=== PATIENT | male | born 1975 | race Caucasian/White ===

== ENCOUNTER → 2019-08-31 15:44 | Outpatient (BNVA) | payer BC, SELFPAY | PROVIDERS: Family Provider Nurse Practitioner; PCP Nurse Practitioner; Visit Provider Nurse Practitioner Family | DX: J02.9 Acute pharyngitis, unspecified (principal); B37.0 Candidal stomatitis; R73.9 Hyperglycemia, unspecified; J18.9 Pneumonia, unspecified organism | CPT/HCPCS: 36415; 83036; 87070 ==

== ENCOUNTER → 2019-09-20 15:05 | Outpatient (BNVA) | payer BC, SELFPAY | PROVIDERS: Family Provider Nurse Practitioner; PCP Nurse Practitioner; Visit Provider Nurse Practitioner | DX: J45.909 Unspecified asthma, uncomplicated (principal); R05 Cough | CPT/HCPCS: 71046 ==

== ENCOUNTER → 2019-10-05 13:20 | Outpatient (BNVA) | payer BC, SELFPAY | PROVIDERS: Family Provider Nurse Practitioner; PCP Nurse Practitioner; Visit Provider Otolaryngology | DX: R22.1 Localized swelling, mass and lump, neck (principal); R47.02 Dysphasia; R13.10 Dysphagia, unspecified; J34.2 Deviated nasal septum | CPT/HCPCS: 99203; 99214 ==

== ENCOUNTER 2019-10-23 14:50 | Outpatient (CLI) | payer BC, SELFPAY ==
--- NOTE | 2019-10-23 15:00 | CT_ITS ---
WS: [id number] CT NECK WITH CONTRAST HISTORY: neck mass TECHNIQUE: Contiguous 5 mm axial images are performed through the neck with intravenous contrast. Sag ittal and coronal reformats are also submitted. All CT scans at [facility] use at least o ne of these dose optimization techniques: automated exposure control; mA and/or kV adjustment per pat ient size (includes targeted exams where dose is matched to clinical indication); or iterative recons truction. CONTRAST: CONTRAST: Omnipaque 300; 95 mL IV. DLP: 2748.27 mGycm COMPARISON: None available. There is very mild prominence of the palatine tonsils, LEFT greater than RIGHT. There is also mild as ymmetry of the LEFT pyriform sinus. No mass or abscess identified. The remaining larynx is negative. Torus tubarius and fossa of Rosenmuller and parapharyngeal fat are normal. No significant lymphadenopathy is identified. Thyroid gland and salivary glands are normally enhancing with no masses. Mild straightening of the normal cervical lordosis. Mild degenerative changes at C5-6 and C6-7. Visualized portions of the skull base demonstrate no abnormalities. Orbits and globes are within norm al limits. No soft tissue masses. Visualized paranasal sinuses and mastoid air cells are normal. Lung apices are clear. CT/CT neck w con* [id number] IMPRESSION: 1. Very minimal asymmetry enlargement of the palatine tonsils and LEFT pyrifor m sinus. No mass identified. Revisualization may be necessary for further evalu ation. 2. No significant adenopathy.
[2019-10-23] MEDS: iohexol 300 mg/mL 100 mL Btl IV (15:08)
== END 2019-10-23 14:51 | disposition home or self-care (01) ==
LOC: RADWPI 14:56
PROVIDERS: Family Provider Nurse Practitioner; PCP Nurse Practitioner; Visit Provider Otolaryngology
DX: R22.1 Localized swelling, mass and lump, neck (principal)
CPT/HCPCS: 70491; Q9967

== ENCOUNTER → 2019-10-24 14:48 | Outpatient (BNVA) | payer BC, SELFPAY | PROVIDERS: Family Provider Nurse Practitioner; PCP Nurse Practitioner; Visit Provider Otolaryngology | DX: R22.1 Localized swelling, mass and lump, neck (principal); R47.02 Dysphasia; R13.10 Dysphagia, unspecified; J34.2 Deviated nasal septum | CPT/HCPCS: 99214 ==

== ENCOUNTER → 2019-11-08 15:56 | Outpatient (BNVA) | payer BC, SELFPAY | PROVIDERS: Family Provider Nurse Practitioner; PCP Nurse Practitioner; Visit Provider Nurse Practitioner Family | DX: L30.9 Dermatitis, unspecified (principal); R21 Rash and other nonspecific skin eruption | CPT/HCPCS: 87081; 87880 ==

== ENCOUNTER 2020-01-12 16:07 | Outpatient (CLI) | payer BC, SELFPAY ==
[2020-01-12 17:08] LABS: Basophils # 0.1 10^3/uL (0.0-0.1); Basophils % 0.7 %; Eosinophils # 0.2 10^3/uL (0.0-0.8); Eosinophils % 1.9 %; Hematocrit 43.2 % (42.0-52.0); Hemoglobin 14.1 g/dL (11.7-16.6); Lymphocytes # 2.8 10^3/uL (0.8-4.8); Lymphocytes % 29.4 %; Mean Corpuscular HGB Conc 32.6 g/dL (30.0-36.0); Mean Corpuscular Hemoglobin 29.1 pg (28.0-34.0); Mean Corpuscular Volume 89.1 fL (80-94); Mean Platelet Volume 9.4 fL (7.4-10.4); Monocytes # 0.8 10^3/uL (0.2-0.9); Monocytes % 8.9 %; Neutrophils # 5.5 10^3/uL (1.8-7.7); Neutrophils % 58.6 %; Nucleated Red Blood Cells % 0 %; Platelet Count 282 10^3/cmm (130-400); Red Blood Count 4.85 10^6/uL (4.1-5.3); Red Cell Distribution Width 13.6 % (12.1-15.1); White Blood Count 9.4 10^3/uL (4.0-10.0)
--- NOTE | 2020-01-12 17:11 | ECG_ITS ---
Measurements Intervals [employer] Rate: 70 P: 16 WV: 171 QRS: 3 QRSD: 89 T: 27 QT: 357 QTc: 387 SINUS RHYTHM No previous ECG available for comparison Electronically Signed On 01-13-2020 16:21:12 CDT by Katja John M.D. [email or web address]
[2020-01-12 17:15] LABS: Anion Gap 14.3 (5-19); Blood Urea Nitrogen 16 mg/dL (6-20); Calcium 10.3 mg/dL (8.5-10.5); Carbon Dioxide 26 mmol/L (22-29); Chloride 100 mmol/L (98-107); Glomerular Filtration Rate 91.7 mL/min (90-130); Glucose 116 mg/dL (65-115); Osmolality Calculated 279 mOsm/kg (285-295); Potassium 4.3 mmol/L (3.5-5.1); Sodium 136 mmol/L (136-145)
== END 2020-01-12 16:08 | disposition home or self-care (01) ==
LOC: RT 16:11
PROVIDERS: PCP Nurse Practitioner; Visit Provider Specialist
DX: Z01.810 Encounter for preprocedural cardiovascular examination (principal)
CPT/HCPCS: 36415; 80048; 85025; 93005

== ENCOUNTER 2020-01-23 09:36 | Day surgery (SDC) | payer BC, SELFPAY ==
[2020-01-19 13:40] VITALS: BMI 35.9
[2020-01-23] VITALS (9 sets, daily range): BP systolic 102–119; BP diastolic 67–79; PULSE 66–89; RESP 11–21; TEMP 36.1–36.6; O2SAT 95–100
[2020-01-23] MEDS: sodium chloride 0.9% 1,000 ML 30 ML IV (10:34)
--- NOTE | 2020-01-23 10:40 | ANES.PREANE2 ---
Pre-Anesthetic Assessment Pre-Anesthetic Assessment: Height/Weight: Height 1.78 m Weight 113.398 kg Temp Pulse Resp BP Pulse Ox 97 F L 81 18 118/75 97 01/23/20 10:22 01/23/20 10:22 01/23/20 10:22 01/23/20 10:22 01/23/20 10:22 Proposed Procedure: Operation Date: 01/23/20 11:40 Proposed Procedures p Direct Laryngoscopy(Not Applicable) - Eliot Cohn MD s Esophagoscopy with biopsy(Not Applicable) - Eliot Cohn MD Last intake: Intake Last Liquid Date 01/22/20 Last Liquid Time 21:00 Last Solid Date 01/22/20 Last Solid Time 21:00 Social: Social History: Tobacco (quit) and No alcohol Exam: Pre-Anes Outpt Exam: alert, oriented x 3, clear to auscultation bilaterally and regular rate & rhythm Airway: Submandibular: WNL Cervical ROM: WNL MP: 2 Dentition: Other (poor dentation) History/ROS: No significant history except as noted Pulmonary: Pulmonary: QUINN CV/HEM: CV/HEM: HTN : : None reported Hepatic: Hepatic: None reported GI: GI: GERD (occ) Metabolic: Metabolic: Morbid obesity Musc/skel: Musc/skel: Scoliosis Neuropsych: Neuropsych: None reported Anesthetic Plan: ASA status: 2 Anesthesia: Anesthesia Evaluation and General Risk of > 500 ml blood loss (7ml/kg in children): No Meds/Allergies Current Medications: Current Medications Generic Name Dose Route Start Last Admin Trade Name Freq PRN Reason Stop Dose Admin Sodium Chloride 1,000 mls @ 30 ml s/hr 01/23/20 10:00 01/23/20 10:34 Sodium Chloride 0.9% IV 01/24/20 09:59 30 mls/hr .Q24H DIETER Administration PFSH Anesthesia PFSH: Medical History Adolescent idiopathic scoliosis Asthma Deviated septum Dysphasia Hypertension Neck mass Odynophagia Scoliosis of thoracic spine Surgical History No history of previous surgery Family History Mother Fibromyalgia Rheumatoid arthritis Social History Smoking and tobacco status: former smoker Quit status (tobacco): has quit using tobacco Second hand smoke exposure: No Smoking risk assessment/counseling performed?: No Alcohol intake: never Desire information about alcohol rehabilitation?: No Counseling given: No Desire information about substance/drug rehabilitation?: No Counseling given: No Adopted: No Caregiver/support person: No Lives independently: Yes Household members: spouse Housing: House Marital status: Number of children: 2 Number of grandchildren: 0 service: No Current occupational status: employed Pets and animals: Yes History of recent travel: No Current gender identity: Male Data Anesthesia Cardiac Studies: No Data to Display
--- NOTE | 2020-01-23 11:32 | W.PM.OPSUD ---
Surgery/Procedure H&P Update DATE OF PROCEDURE: January 23, 2020 DATE H&P PERFORMED: 01/12/20 H&P UPDATE INFORMATION: I have reviewed H&P completed within last 30 days, I have examined patient prior to procedure and No changes to prior documentation PREOP DIAGNOSIS: Dysphagia; throat pain PLANNED PROCEDURE: Operation Date: 01/23/20 11:40 Proposed Procedures p Direct Laryngoscopy(Not Applicable) - Eliot Cohn MD s Esophagoscopy with biopsy(Not Applicable) - Eliot Cohn MD
[2020-01-23] MEDS: EPINEPHrine 1 mg/mL INJ 3 MG XX (11:56)
[2020-01-23] MEDS: fluorescein 1 mg Strip XX (11:57)
--- NOTE | 2020-01-23 12:21 | P.OP_ITS ---
Operative Report Date of procedure: January 23, 2020 Pre-op Diagnosis: Dysphagia; throat pain Post-op diagnosis: same Post-op Findings: Chronic laryngitis with o/w normal laryngeal exam; normal esophageal exam Procedure Done: Direct laryngoscopy Flexible Esophagoscopy Implants: None Pathology: none sent Surgeon: Eliot Cohn Environmental Management Specialist: Logan Robb Anesthesia: General Estimated blood loss (mL): 0 IV fluids (mL): 500 Complications: None Condition: stable Disposition: PACU Brief History: 44 yo wm with a h/o new onset dysphagia and throat pain who desires surgical evaluation. Procedure: The patient was identified in the preoperative holding area and was taken to the operating room where he was placed on the operating table in the supine position. Anesthesia was obtained with general endotracheal anesthesia and the table was turned 90 degrees to the patient's left. A Silastic tooth guard was placed on the patient's maxillary teeth, and the surgical laryngoscope was advanced down the right oral cavity gutter under direct vision until the larynx came into view. A systematic inspection was then carried of the patient's larynx with findings noted above. Once this was accomplished, the laryngoscope was removed and the flexible esophagoscope was passed into the esophageal inlet and a systematic inspection was carried out of the patient's esophagus to the cardia of the stomach with the findings noted above. Once this inspection was complete, the esophagoscope was removed from the patient and the procedure was terminated. Control of the patient was returned to anesthesia where he underwent an uneventful reversal of anesthesia and extubation and was taken to the recovery room in stable condition. There were no operative or anesthetic complications.
--- NOTE | 2020-01-23 12:22 | SUR.PHASEI ---
1220 PATIENT TO PACU FROM OR. NO DISTRESS. PLACED ON SIMPLE MASK AT 8L, SPO2 98%.
--- NOTE | 2020-01-23 12:49 | SUR.PHASEI ---
1246 PATIENT TO OPS AT THIS TIME. NO DISTRESS. TALKATIVE. PATIENT TOLERATING ICE CHIPS.
[2020-01-23] MEDS: HYDROcodone-acetaminophen 5-325 mg Tablet 1 TAB PO (13:02)
== END 2020-01-23 13:35 | disposition home or self-care (01) ==
PROVIDERS: PCP Nurse Practitioner; Visit Provider Specialist
PROC: 0CJS8ZZ Inspection of Larynx, Via Natural or Artificial Opening Endoscopic (ICD-10-PCS; principal; 2020-01-23 11:30)
PROC: 0DJ08ZZ Inspection of Upper Intestinal Tract, Via Natural or Artificial Opening Endoscopic (ICD-10-PCS; 2020-01-23 11:30)
DX: R13.10 Dysphagia, unspecified (principal); R07.0 Pain in throat; I10 Essential (primary) hypertension; K21.9 Gastro-esophageal reflux disease without esophagitis; E66.01 Morbid (severe) obesity due to excess calories; Z68.35 Body mass index [BMI] 35.0-35.9, adult; Z87.891 Personal history of nicotine dependence
CPT/HCPCS: 12345; 43200; J0171; J0330; J1100; J2001; J2405; J2704; J3010; J3490; J7030

== ENCOUNTER → 2020-10-04 09:09 | Outpatient (BNVA) | payer OTHER, SELFPAY | PROVIDERS: PCP Nurse Practitioner; Visit Provider Orthopaedic Surgery | DX: M54.5 Low back pain (principal) | CPT/HCPCS: 72110 ==

== ENCOUNTER 2021-06-02 14:50 | Outpatient (CLI) | payer BC, SELFPAY ==
--- NOTE | 2021-06-02 15:04 | XR_ITS ---
WS: [id number] Right foot, 3 views, 06/02/2021 Clinical Data: FOOT PAIN Comparison: None. Findings: No fractures or dislocations are seen. No bone destruction or erosion is noted. The joint spaces and soft tissues are normal. XR/XR foot RT min 3V* [id number] Impression: Negative right foot.
--- NOTE | 2021-06-02 15:04 | XR_ITS ---
WS: [id number] XR foot LT min 3V* [id number] REASON FOR EXAM: FOOT PAIN FINDINGS: Minimal change of osteoarthritis in the DIP and PIP joints of the second through the fifth toes with mild joint space narrowing and subchondral sclerosis. No focal bone lesion. Bony and joint structures of the midfoot are intact without significant abnormality. Bony and joint structures of the hindfoot are intact and without significant abnormality. XR/XR foot LT min 3V* [id number] IMPRESSION: Minimal change of osteoarthritis in the toes as above.
== END 2021-06-02 14:51 | disposition home or self-care (01) ==
PROVIDERS: PCP Nurse Practitioner; Visit Provider Nurse Practitioner Family
DX: M79.671 Pain in right foot (principal); M79.672 Pain in left foot
CPT/HCPCS: 73630

== ENCOUNTER → 2025-08-28 14:41 | Outpatient (BNVA) | payer BC, SELFPAY | PROVIDERS: PCP Nurse Practitioner; Referring Provider Nurse Practitioner Family; Visit Provider Nurse Practitioner Family | DX: M48.062 Spinal stenosis, lumbar region with neurogenic claudication (principal); M51.372 Other intervertebral disc degeneration, lumbosacral region with discogenic back pain and lower extremity pain; M41.84 Other forms of scoliosis, thoracic region | CPT/HCPCS: 72100 ==